=== PATIENT | female | born 1950 | race African-American/Black ===

== ENCOUNTER 2020-04-28 11:36 | Inpatient (IN) | payer OTHER ==
[2020-04-28 14:26] VITALS: BMI 30.2
[2020-04-28] MEDS ORDERED: MAG HYDROX/AL HYDROX/SIMETH 30 ML UNIT-DOSE CUP PO PRN (16:05)
[2020-04-28] MEDS ORDERED: LOPERAMIDE HCL 2 MG CAPSULE PO PRN (16:05)
[2020-04-28] MEDS ORDERED: NICOTINE POLACRILEX 2 MG GUM BC PRN (16:05)
[2020-04-28] MEDS ORDERED: MAGNESIUM CITRATE 300 ML BOTTLE PO PRN (16:05)
[2020-04-28] MEDS ORDERED: MAGNESIUM HYDROX 2400MG/30ML ORAL SUSPENSION 30 ML CUP PO PRN (16:05)
[2020-04-28] MEDS ORDERED: ACETAMINOPHEN 325 MG TABLET (FP) PO PRN (16:05)
[2020-04-28] MEDS ORDERED: P-EPHED 60MG/TRIPROLIDI 2.5MG TABLET PO PRN (16:05)
[2020-04-28] MEDS ORDERED: IBUPROFEN 400 MG TABLET (FP) PO PRN (16:05)
[2020-04-28] MEDS ORDERED: guaiFENesin 200 MG/10 ML 10 ML UNIT-DOSE CUPS PO PRN (16:05)
[2020-04-28] MEDS ORDERED: DOCUSATE SODIUM 100 MG CAPSULE (FP) PO PRN (16:07)
[2020-04-28] MEDS ORDERED: SODIUM CHLORIDE NASAL SPRAY 44 ML BOTTLE NS PRN ×2 (16:07→16:20)
[2020-04-28] MEDS: LEVOTHYROXINE NA 25 MCG TABLET (FP) PO SCH (17:29)
[2020-04-28] MEDS: hydrOXYzine PAMOATE 25 MG CAPSULE (FP) PO SCH ×2 (17:29→21:33)
[2020-04-28] MEDS: PANTOPRAZOLE 20 MG TABLET PO SCH (17:29)
[2020-04-28] MEDS: GABAPENTIN 100 MG CAPSULE PO SCH ×2 (17:29→21:33)
[2020-04-28] MEDS: ASPIRIN COATED 81 MG TABLET.EC PO SCH (17:29)
[2020-04-28] MEDS: NICOTINE 7 MG/24 HOURS TOPICAL PATCH TD SCH (17:30)
[2020-04-28] MEDS: RIFAXIMIN 550 MG TABLET (UD) PO SCH (21:31)
[2020-04-28] MEDS: THIAMINE HCL 100 MG TABLET (FP) PO SCH (21:31)
[2020-04-28] MEDS: OXYBUTYNIN CHLORIDE 5 MG TABLET PO SCH (21:31)
[2020-04-28] MEDS: MELATONIN 5 MG TABLETS PO SCH (21:31)
[2020-04-29] MEDS: LEVOTHYROXINE NA 25 MCG TABLET (FP) PO SCH (06:39)
[2020-04-29] MEDS: hydrOXYzine PAMOATE 25 MG CAPSULE (FP) PO SCH ×3 (06:39→14:20)
[2020-04-29] MEDS: METHADONE HCL 40 MG DISPERSABLE TABLET PO SCH (08:32)
[2020-04-29 08:59] LABS: HEMATOCRIT 39.6 % (32.4-45.2); HEMOGLOBIN 13.1 GM/dL (10.7-15.3); MCH 29.1 pg (25.7-33.7); MCHC 33.1 g/dl (32.0-36.0); MEAN CELL VOLUME 88.2 fl (80-96); MEAN PLT VOLUME 9.3 fl (7.5-11.1); PLATELET COUNT 164 K/MM3 (134-434); RBC 4.49 M/mm3 (3.60-5.2); RDW 13.9 % (11.6-15.6); WHITE BLOOD COUNT 5.5 K/mm3 (4.0-10.0)
[2020-04-29 09:03] LABS: POTASSIUM 4.5 mmol/L (3.5-5.1)
[2020-04-29 09:06] LABS: CALCIUM 9.3 mg/dL (8.5-10.1)
[2020-04-29 09:08] LABS: ALBUMIN 3.6 g/dl (3.4-5.0); BLOOD UREA NITROGEN 11.4 mg/dL (7-18)
[2020-04-29 09:10] LABS: CREATININE 0.7 mg/dL (0.55-1.3); SICKLE CELL SCREEN NEGATIVE (NEGATIVE)
[2020-04-29 09:13] LABS: BILIRUBIN,TOTAL 1.1 mg/dL (0.2-1); TOT PROT 7.6 g/dl (6.4-8.2)
[2020-04-29] MEDS: PRENATAL VITAMINS W/ FOLIC ACID TABLET (FP) PO SCH (10:45)
[2020-04-29] MEDS: ASPIRIN COATED 81 MG TABLET.EC PO SCH (10:46)
[2020-04-29] MEDS: OXYBUTYNIN CHLORIDE 5 MG TABLET PO SCH ×2 (10:46→21:06)
[2020-04-29] MEDS: PANTOPRAZOLE 20 MG TABLET PO SCH (10:46)
[2020-04-29] MEDS: GABAPENTIN 100 MG CAPSULE PO SCH ×2 (10:46→21:07)
[2020-04-29] MEDS: OMEGA PO SCH (10:47)
[2020-04-29] MEDS: EPA PO SCH (10:47)
[2020-04-29] MEDS: DHA PO SCH (10:47)
[2020-04-29] MEDS: FISH OIL PO SCH (10:47)
[2020-04-29] MEDS: RIFAXIMIN 550 MG TABLET (UD) PO SCH ×2 (10:47→21:08)
[2020-04-29] MEDS: [UNRECOGNIZED DRUG - OTHER] PO SCH (10:47)
[2020-04-29] MEDS: NICOTINE 7 MG/24 HOURS TOPICAL PATCH TD SCH (10:51)
[2020-04-29] MEDS ORDERED: PT OWN MED DRAWER 7, Y5N ONE ×4 (10:57→21:08)
[2020-04-29] MEDS ORDERED: NYSTATIN 100,000 UNIT/GM TOPICAL CREAM 15 GM TUBE TP PRN (14:14)
[2020-04-29 14:43] LABS: EPI CELLS 25 /uL (0-25.1); HYALINE CASTS 0 /uL (0-3.1); URINE APPEARANCE CLEAR; URINE BACTERIA >9,000 /uL (0-1359); URINE BILIRUBIN NEGATIVE (NEGATIVE); URINE COLOR YELLOW; URINE GLUCOSE (UA) NEGATIVE (NEGATIVE); URINE KETONE NEGATIVE (NEGATIVE); URINE LEUK ESTERASE TRACE (NEGATIVE); URINE NITRITE NEGATIVE (NEGATIVE); URINE PROTEIN NEGATIVE (NEGATIVE); URINE RBC 10 /uL (0-23.9); URINE UROBILINOGEN 0.2 mg/dL (0.2-1.0); URINE WBC 15 /uL (0-25.8)
[2020-04-29] MEDS ORDERED: hydrOXYzine PAMOATE 25 MG CAPSULE (FP) PO PRN (16:04)
[2020-04-29] MEDS: THIAMINE HCL 100 MG TABLET (FP) PO SCH (21:06)
[2020-04-29] MEDS: MELATONIN 5 MG TABLETS PO SCH (21:06)
[2020-04-29] MEDS ORDERED: NYSTATIN 100,000 UNIT/GM TOPICAL CREAM 15 GM TUBE TP SCH (22:00)
[2020-04-29] MEDS ORDERED: MIRTAZAPINE 15 MG TABLET (FP) PO SCH (22:00)
[2020-04-30] MEDS: LEVOTHYROXINE NA 25 MCG TABLET (FP) PO SCH (06:18)
[2020-04-30] MEDS: METHADONE HCL 40 MG DISPERSABLE TABLET PO SCH (06:18)
[2020-04-30 07:10] VITALS: TEMP 98
[2020-04-30 09:12] VITALS: BP 135/72; PULSE 65
[2020-04-30] MEDS: PANTOPRAZOLE 20 MG TABLET PO SCH (09:33)
[2020-04-30] MEDS: ASPIRIN COATED 81 MG TABLET.EC PO SCH (09:33)
[2020-04-30] MEDS: OXYBUTYNIN CHLORIDE 5 MG TABLET PO SCH (09:33)
[2020-04-30] MEDS: PRENATAL VITAMINS W/ FOLIC ACID TABLET (FP) PO SCH (09:34)
[2020-04-30] MEDS: RIFAXIMIN 550 MG TABLET (UD) PO SCH (09:34)
[2020-04-30] MEDS: OMEGA PO SCH (09:35)
[2020-04-30] MEDS: EPA PO SCH (09:35)
[2020-04-30] MEDS: NICOTINE 7 MG/24 HOURS TOPICAL PATCH TD SCH (09:35)
[2020-04-30] MEDS: [UNRECOGNIZED DRUG - OTHER] PO SCH (09:35)
[2020-04-30] MEDS: DHA PO SCH (09:35)
[2020-04-30] MEDS: FISH OIL PO SCH (09:35)
[2020-04-30] MEDS ORDERED: SERTRALINE HCL 50 MG TABLET (FP) PO SCH (10:00)
[2020-04-30] MEDS: GABAPENTIN 100 MG CAPSULE PO SCH (10:28)
== END 2020-04-30 12:58 | disposition home or self-care (01) | DRG 897 ==
LOC: YASAS 11:36 → Y3E 14:36
PROVIDERS: ADMIT Allergy & Immunology; ATTEND Allergy & Immunology
PROC: HZ2ZZZZ Detoxification Services for Substance Abuse Treatment (ICD-10-PCS; principal; 2020-04-28)
DX: F10.230 Alcohol dependence with withdrawal, uncomplicated (principal); F14.20 Cocaine dependence, uncomplicated; F11.20 Opioid dependence, uncomplicated; F17.210 Nicotine dependence, cigarettes, uncomplicated; F41.9 Anxiety disorder, unspecified; F31.9 Bipolar disorder, unspecified; K70.30 Alcoholic cirrhosis of liver without ascites; E03.9 Hypothyroidism, unspecified; E78.5 Hyperlipidemia, unspecified; B18.2 Chronic viral hepatitis C; G56.03 Carpal tunnel syndrome, bilateral upper limbs; M17.12 Unilateral primary osteoarthritis, left knee; M54.89 Other dorsalgia; Z96.641 Presence of right artificial hip joint; Z99.89 Dependence on other enabling machines and devices; Z88.1 Allergy status to other antibiotic agents; Z88.8 Allergy status to other drugs, medicaments and biological substances; Z91.011 Allergy to milk products; Z86.19 Personal history of other infectious and parasitic diseases
CPT/HCPCS: 36415; 80053; 81003; 85027; 85660; 86780; 93005; 93010; C9803; U0003